=== PATIENT | male | born 1945 | race Caucasian/White ===

== ENCOUNTER 2021-07-16 12:56 | Inpatient (IN) | payer MEDICARE, BC ==
[~2021-07-16] VITALS: Ht 182.9 cm; Wt 98.0 kg
[2021-07-16] VITALS (7 sets, daily range): BP systolic 102–126; BP diastolic 52–60
--- NOTE | 2021-07-16 12:59 | NUR ---
BIBCLINIC STAFF FROM DR FELIX OFFICE C/O DIZZINESS SINCE YESTERDAY, VOMITING SINCE TUE AND DIARRHEA SINCE LAST NIGHT, TO ER BED 6, HOOKED TO MONITOR, NOTED LOW BLOOD PRESSURE. CHANGED TO [facility], 1 EPISODE OF DIARRHEA NOTED. WARM BLANKET PROVIDED.
--- NOTE | 2021-07-16 13:03 | NUR ---
DR CANADA AT BEDSIDE
--- NOTE | 2021-07-16 13:22 | NUR ---
CHARGING MACHINE OPERATOR AT BEDSIDE
[2021-07-16] MEDS ORDERED: IV NS 0.9% 1,000 ML BAG IV ONE (13:30)
[2021-07-16 13:57] LABS: BASOPHILS % (AUTO) 0.1 % (0.0-2.0); HEMATOCRIT 38 % (39-51); HEMOGLOBIN 12.2 g/dL (13.5-17.5); LYMPHOCYTES # (AUTO) 0.5 K/uL (0.8-4.8); LYMPHOCYTES % (AUTO) 9.6 % (20.0-44.0); MEAN CORPUSCULAR HGB CONC 33 g/dl (31.0-36.0); MEAN CORPUSCULAR VOLUME 89 fL (80-96); MONOCYTES # (AUTO) 0.3 K/uL (0.1-1.30); NEUTROPHILS # (AUTO) 4.4 K/uL (1.8-8.9); NEUTROPHILS % (AUTO) 84.3 % (43.0-81.0); RED BLOOD CELL COUNT(AUTO) 4.23 MIL/uL (4.5-6.0); WHITE BLOOD COUNT (AUTO) 5.2 K/uL (4.3-11.0)
[2021-07-16 14:22] LABS: CALCIUM, SERUM 6.8 mg/dL (8.5-10.1); CARBON DIOXIDE 21 mmol/L (21-32); CHLORIDE 106 mmol/L (98-107); CREATININE 2.2 mg/dL (0.6-1.3); GLUCOSE 124 mg/dL (74-106); POTASSIUM 3.8 mmol/L (3.5-5.1); SODIUM SERUM 137 mmol/L (136-145); UREA NITROGEN, BLOOD 49 mg/dL (7-18)
[2021-07-16 14:30] LABS: ALANINE AMINOTRANSFERASE 22 U/L (12-78); ALBUMIN 2.5 g/dL (3.4-5.0); ALKALINE PHOSPHATASE 40 U/L (46-116); ASPARTATE AMINOTRANSFERASE 22 U/L (15-37); BILIRUBIN,DIRECT 0.1 mg/dL (0.0-0.2); BILIRUBIN,TOTAL 0.5 mg/dL (0.2-1.0); TOTAL PROTEIN, SERUM 5.9 g/dL (6.4-8.2)
--- NOTE | 2021-07-16 14:39 | NUR ---
CARDIOLOGY ON-CALL PAGED
--- NOTE | 2021-07-16 14:52 | NUR ---
DR CASTREJON AT BEDSIDE
--- NOTE | 2021-07-16 14:53 | NUR ---
PANEL ON-CALL PAGED
[2021-07-16] MEDS ORDERED: ENOXAPARIN SODIUM 100 MG/ML DISP.SYRIN SQ ONE ×2 (15:00→15:08)
[2021-07-16] MEDS ORDERED: LOPERAMIDE HCL (2 MG CAP) 2 MG CAPSULE PO ONE (15:00)
[2021-07-16] MEDS ORDERED: LOPERAMIDE HCL (2 MG CAP) 2 MG CAPSULE ONE (15:08)
[2021-07-16] MEDS ORDERED: DICL50TA9 PO (15:34)
[2021-07-16] MEDS ORDERED: IBRU140C PO (15:34)
[2021-07-16] MEDS ORDERED: ZOLP5TAB2 PO (15:34)
[2021-07-16] MEDS ORDERED: CLOP75TA15 PO (15:34)
[2021-07-16] MEDS ORDERED: CARV3.122 PO (15:34)
[2021-07-16] MEDS ORDERED: METF-442 PO (15:34)
[2021-07-16] MEDS ORDERED: ATOR40TA PO (15:34)
[2021-07-16] MEDS ORDERED: TIZA-180 PO (15:34)
--- NOTE | 2021-07-16 16:01 | NUR ---
GOT ICU BED 253
--- NOTE | 2021-07-16 16:02 | NUR ---
COVID SWAB DONE AND SENT TO LAB
--- NOTE | 2021-07-16 16:40 | NUR ---
REPORT GIVEN TO FRANK DUNAWAY OF ICU
--- NOTE | 2021-07-16 16:45 | NUR ---
REPORT GIVEN TO TAY DUNAWAY OF ICU
--- NOTE | 2021-07-16 16:56 | NUR ---
TRANSFERRED TO ICU IN STABLE CONDITION
[2021-07-16 16:57] LABS: BAND % (MANUAL) 19 % (0.0-5.0); LYMPHOCYTES % (MANUAL) 13 % (16-48); MONOCYTES % (MANUAL) 1 % (0-11.0); NEUTROPHILS % (MANUAL) 67 (42-76)
[2021-07-16 16:59] LABS: PLATELET COUNT (AUTO) 71 K/uL (150-450)
--- NOTE | 2021-07-16 17:00 | NUR ---
RN NOTE PT TRANSFERED FROM ER. PT A/OX4 NO SOB OR CHEST PAIN. BP 90/60. LAC #18 RUNNING 100CC. PT NEEDS STOOL SAMPLE.
[2021-07-16] MEDS ORDERED: ACETAMINOPHEN 325 MG TABLET PO PRN (18:00)
[2021-07-16] MEDS ORDERED: TIZANIDINE HCL 4 MG TABLET PO SCH ×2 (18:00→22:00)
[2021-07-16] MEDS ORDERED: ONDANSETRON HCL/PF 4 MG/2 ML VIAL IVP PRN (18:00)
[2021-07-16] MEDS ORDERED: Z GUARD REMEDY 4 OZ OINT TP PRN (18:00)
[2021-07-16] MEDS: IV LR 1000 ML 1,000 ML IV PRN (18:34)
[2021-07-16] MEDS: DIPHENOXYLATE HCL/ATROP SULF 1 UDTAB TABLET PO PRN (18:34)
[2021-07-16] MEDS: CIPROFLOXACIN HCL 500 MG TABLET PO SCH (21:05)
[2021-07-16] MEDS ORDERED: ATORVASTATIN 40 MG TABLET PO SCH (22:00)
[2021-07-16] MEDS ORDERED: ZOLPIDEM TARTRATE 5 MG TABLET PO SCH (22:00)
[2021-07-17] VITALS (13 sets, daily range): BP systolic 89–109; BP diastolic 47–60
[2021-07-17] MEDS: IV LR 1000 ML 1,000 ML IV PRN (04:02)
[2021-07-17] MEDS: DIPHENOXYLATE HCL/ATROP SULF 1 UDTAB TABLET PO PRN (04:15)
[2021-07-17 04:58] LABS: ALANINE AMINOTRANSFERASE 22 U/L (12-78); ALBUMIN 2.1 g/dL (3.4-5.0); ALKALINE PHOSPHATASE 35 U/L (46-116); ASPARTATE AMINOTRANSFERASE 17 U/L (15-37); BASOPHILS % (AUTO) 0.1 % (0.0-2.0); BILIRUBIN,TOTAL 0.3 mg/dL (0.2-1.0); CALCIUM, SERUM 6.8 mg/dL (8.5-10.1); CARBON DIOXIDE 22 mmol/L (21-32); CHLORIDE 110 mmol/L (98-107); CREATININE 1.3 mg/dL (0.6-1.3); EOSINOPHILS % (AUTO) 0.1 % (0.0-6.0); GLUCOSE 91 mg/dL (74-106); HEMATOCRIT 33 % (39-51); HEMOGLOBIN 10.7 g/dL (13.5-17.5); LYMPHOCYTES # (AUTO) 0.5 K/uL (0.8-4.8); LYMPHOCYTES % (AUTO) 23.8 % (20.0-44.0); MEAN CORPUSCULAR HGB CONC 33 g/dl (31.0-36.0); MEAN CORPUSCULAR VOLUME 89 fL (80-96); MONOCYTES # (AUTO) 0.2 K/uL (0.1-1.30); MONOCYTES % (AUTO) 9.7 % (2.0-12.0); NEUTROPHILS # (AUTO) 1.3 K/uL (1.8-8.9); NEUTROPHILS % (AUTO) 66.3 % (43.0-81.0); PHOSPHORUS 2.5 mg/dL (2.5-4.9); PLATELET COUNT (AUTO) 56 K/uL (150-450); POTASSIUM 3.5 mmol/L (3.5-5.1); RED BLOOD CELL COUNT(AUTO) 3.69 MIL/uL (4.5-6.0); SODIUM SERUM 139 mmol/L (136-145); TOTAL PROTEIN, SERUM 5.2 g/dL (6.4-8.2); UREA NITROGEN, BLOOD 35 mg/dL (7-18)
[2021-07-17 05:03] LABS: IRON, SERUM 9 ug/dl (50-175); TOTAL IRON BINDING CAPACITY 186 ug/dl (250-450)
[2021-07-17 05:12] LABS: CHOLESTEROL 68 mg/dL (<200); HDL CHOLESTEROL 33 mg/dL (40-60); LDL 23 mg/dL (0-99); THYROID STIMULATING HORMONE 1.221 uIU/mL (0.358-3.74); TRIGLYCERIDES 74 mg/dL (30-150)
[2021-07-17] MEDS ORDERED: PANTOPRAZOLE 40 MG TABLET.DR PO SCH (07:30)
--- NOTE | 2021-07-17 08:00 | NUR ---
ICU/RN PT IS RESTING IN THE BED.ON ROOM AIR.SAT O2-98%.V/S STABLE,AFEBRILE.NO PAIN REPORTED AT THIS TIME. USE URINAL .LABS REVIEW.PT EATS 50% FROM HIS MEAL TRAY.CONTINUE MONITORING
[2021-07-17] MEDS ORDERED: CARVEDILOL 3.125 MG TABLET PO SCH (09:00)
[2021-07-17] MEDS ORDERED: CLOPIDOGREL BISULFATE 75 MG TABLET PO SCH (09:00)
[2021-07-17] MEDS ORDERED: METFORMIN 500 MG TABLET PO SCH (09:00)
[2021-07-17] MEDS ORDERED: DICLOFENAC SODIUM 25 MG TABLET.DR PO SCH (09:00)
[2021-07-17] MEDS: CIPROFLOXACIN HCL 500 MG TABLET PO SCH (09:05)
--- NOTE | 2021-07-17 09:50 | NUR ---
ICU/RN PT AMBULATED WITH PHYSICAL THERAPIST.NO SOB.TOLERATED WELL .
[2021-07-17 10:12] LABS: BAND % (MANUAL) 22 % (0.0-5.0); EOSINOPHILS % (MANUAL) 1 % (0-4); LYMPHOCYTES % (MANUAL) 14 % (16-48); MONOCYTES % (MANUAL) 10 % (0-11.0); NEUTROPHILS % (MANUAL) 53 (42-76)
--- NOTE | 2021-07-17 10:49 | NUR ---
ICU/RN KAJAL JAMESON SEEN THE PT .OK D/C PATIENT HOME.
--- NOTE | 2021-07-17 11:50 | NUR ---
ICU/RN PT D/C HOME.LEFT HOSPITAL WITH HIS .
== END 2021-07-17 11:55 | disposition home or self-care (01) | DRG 391 ==
LOC: ER 13:00 → ICU 16:22
PROVIDERS: ADMIT Nurse Practitioner Acute Care; ATTEND Nurse Practitioner Acute Care
DX: A05.9 Bacterial foodborne intoxication, unspecified (principal); I21.A1 Myocardial infarction type 2; N17.0 Acute kidney failure with tubular necrosis; I50.32 Chronic diastolic (congestive) heart failure; C91.10 Chronic lymphocytic leukemia of B-cell type not having achieved remission; I95.9 Hypotension, unspecified; D69.6 Thrombocytopenia, unspecified; I11.0 Hypertensive heart disease with heart failure; N40.0 Benign prostatic hyperplasia without lower urinary tract symptoms; D64.9 Anemia, unspecified; R73.03 Prediabetes; E78.5 Hyperlipidemia, unspecified; I35.0 Nonrheumatic aortic (valve) stenosis; M19.90 Unspecified osteoarthritis, unspecified site; Z79.899 Other long term (current) drug therapy; Z95.0 Presence of cardiac pacemaker; Z95.5 Presence of coronary angioplasty implant and graft; Z88.3 Allergy status to other anti-infective agents; Z91.048 Other nonmedicinal substance allergy status; Z20.822 Contact with and (suspected) exposure to COVID-19
CPT/HCPCS: 36415; 71045-TC; 80048-TC; 80053-TC; 80061-TC; 80076-TC; 83540-TC; 83605-TC; 83735-TC; 84100-TC; 84443-TC; 84484-TC; 85025-TC; 85730-TC; 87040-TC; 87045-TC; 87081-TC; 89055; 93307-TC; 97116-TC; 97530-TC; G0378; J1650; J7030; J7120